=== PATIENT | male | born 1955 | race Caucasian/White ===

== ENCOUNTER 2022-05-06 10:24 | Emergency (ER) | payer SELFPAY ==
[~2022-05-06] VITALS: Ht 182.9 cm; Wt 90.7 kg
[2022-05-06] MEDS ORDERED: hydrALAZINE HCL 20 MG/1 ML VIAL ONE (10:54)
[2022-05-06] MEDS ORDERED: hydrALAZINE HCL 20 MG/1 ML VIAL IM ONE (11:00)
[2022-05-06] MEDS ORDERED: AMLO-212 PO (11:04)
--- NOTE | 2022-05-06 11:22 | NUR ---
Gave pt RX and d/c instructions, pt verbalized understanding, but refused to sign d/c paper.
--- NOTE | 2022-05-06 11:24 | NUR ---
Security was called to escort pt out.
[2022-05-06 11:25] VITALS: BP 183/85
== END 2022-05-06 11:43 | disposition home or self-care (01) ==
LOC: ER 10:29
DX: Z71.1 Person with feared health complaint in whom no diagnosis is made (principal); R03.0 Elevated blood-pressure reading, without diagnosis of hypertension
CPT/HCPCS: 99283; 96372; J0360; A4663